=== PATIENT | male | born 1995 | race Two or more races ===

== ENCOUNTER 2020-02-06 11:28 | Emergency (ER) | payer OTHER ==
[~2020-02-06] VITALS: Ht 165.1 cm; Wt 55.0 kg
--- NOTE | 2020-02-06 11:59 | RAD ---
HAND LEFT 3V History: Pain. Crush injury. Comparison: None. Findings: Normal alignment. No fracture. Dorsal hand soft tissue swelling. Impression: 1. No acute osseous abnormality. 2. Dorsal hand soft tissue swelling. Electronically signed by: Esteban Pettit DO (02/06/2020 11:56 AM) [id number]
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
[2020-02-06] MEDS: NEOMY/BACITR/POLYMYXIN OINT PACKET. TP ONE (13:21)
[2020-02-06] MEDS: LIDOCAINE 2%/EPI 1:100,000 20 ML VIAL. IJ ONE (13:22)
[2020-02-06 14:15] VITALS: BP 128/71
== END 2020-02-06 14:49 | disposition home or self-care (01) ==
LOC: ER 11:28
DX: S61.412A Laceration without foreign body of left hand, initial encounter (principal); W23.0XXA Caught, crushed, jammed, or pinched between moving objects, initial encounter; Y93.89 Activity, other specified; Y92.69 Other specified industrial and construction area as the place of occurrence of the external cause; Y99.0 Civilian activity done for income or pay
CPT/HCPCS: 12002; 73130; 99283; J3490